=== PATIENT | female | born 2000 | race African-American/Black ===

== ENCOUNTER 2023-07-26 11:41 | Emergency (ER) | payer MEDICAID ==
[~2023-07-26] VITALS: Ht 167.6 cm; Wt 140.0 kg
[2023-07-26 11:44] VITALS: BP 124/78; PULSE 84; RESP 18; TEMP 98.3; O2SAT 98
[2023-07-26] MEDS ORDERED: TETANUS, DIPHTHERIA, PERTUSSIS VAC/PF 0.5ML (>10YR OLD) IM ONE (12:30)
[2023-07-26] MEDS ORDERED: ACETAMINOPHEN 325MG TABLET PO ONE (12:30)
[2023-07-26] MEDS ORDERED: LIDOCAINE HCL/PF 1% 10 MG/ML 5ML VIAL INFIL ONE (12:30)
[2023-07-26] MEDS ORDERED: BACITRACIN ZINC OINT UDPKT TOP ONE (12:30)
[2023-07-26] MEDS ORDERED: NAPR-681 MT (17:28)
[2023-07-26] MEDS ORDERED: TOPUD MT (17:28)
== END 2023-07-26 19:09 | disposition home or self-care (01) ==
LOC: ER 11:41
DX: S01.01XA Laceration without foreign body of scalp, initial encounter (principal); R42 Dizziness and giddiness; Y08.89XA Assault by other specified means, initial encounter; Y93.89 Activity, other specified; Y92.89 Other specified places as the place of occurrence of the external cause; Y99.8 Other external cause status
CPT/HCPCS: 73090; 70450; 70486; 90715; 12005; 90471; 99285; J3490; Z7610 ×2